=== PATIENT | female | born 1960 | race Caucasian/White ===

== ENCOUNTER 2018-01-03 21:40 | Observation (INO) | payer OTHER ==
[2018-01-03 21:53] VITALS: BMI 26.5
--- NOTE | 2018-01-03 21:57 | ED PDOC ---
Arrival/HPI - General Historian: Patient, EMS - History of Present Illness Narrative History of Present Illness (Text): 01/03/18 21:41 57 y/o female, pmh including htn/dm, nkda, biba, post menopausal, c/o rt. lateral knee pain x 2 days. Pt. stated that she has chronic history of the rt. lateral knee pain for months, possibly injured it couple days ago from getting up from the seat, started to hurt again 2 days ago, took oxycodone 1 tablet this afternoon improved but the pain return, admits pain with walking, no fever or chills, pain radiating to the rt. calf, no night sweat, no rash, no other medical or psychological complaints. Past Medical History - Provider Review Nursing Documentation Reviewed: Yes Family/Social History - Physician Review Nursing Documentation Reviewed: Yes Family/Social History: Unknown Family HX Allergies/Home Meds Allergies/Adverse Reactions: Allergies No Known Allergies Allergy (Verified 01/03/18 21:57) Home Medications: Home Meds Medication Instructions Recorded Confirmed RX: Hydrochlorothiazide [Microzide] 25 mg PO DAILY 01/03/18 01/03/18 RX: Lisinopril [Zestril] 20 mg PO DAILY 01/03/18 01/03/18 RX: MetFORMIN [glucoPHAGE] 1 tab PO DAILY 01/03/18 01/03/18 RX: amLODIPine [Norvasc] 10 mg PO DAILY 01/03/18 01/03/18 RX: glyBURIDE [Micronase] 5 mg PO DAILY 01/03/18 01/03/18 Review of Systems - Review of Systems Constitutional: absent: Fatigue, Fevers Eyes: absent: Vision Changes ENT: absent: Hearing Changes Respiratory: absent: SOB, Cough Cardiovascular: absent: Chest Pain Gastrointestinal: absent: Abdominal Pain, Nausea, Vomiting Musculoskeletal: Arthralgias, Joint Swelling. absent: Back Pain, Neck Pain, Myalgias Skin: absent: Rash, Pruritis Neurological: absent: Headache, Dizziness Psychiatric: absent: Anxiety, Depression Physical Exam Vital Signs Reviewed: Yes Temperature: Afebrile Blood Pressure: Hypertensive Pulse: Regular Respiratory Rate: Normal Appearance: Positive for: Well-Appearing, Non-Toxic, Comfortable Pain Distress: Moderate Mental Status: Positive for: Alert and Oriented X 3 - Systems Exam Head: Present: Atraumatic, Normocephalic Pupils: Present: PERRL Extroacular Muscles: Present: EOMI Conjunctiva: Present: Normal Mouth: Present: Moist Mucous Membranes Neck: Present: Normal Range of Motion Respiratory/Chest: Present: Clear to Auscultation, Good Air Exchange. No: Respiratory Distress, Accessory Muscle Use Cardiovascular: Present: Regular Rate and Rhythm, Normal S1, S2. No: Murmurs Abdomen: No: Tenderness, Distention, Peritoneal Signs Back: Present: Normal Inspection Upper Extremity: Present: Normal Inspection. No: Cyanosis, Edema Lower Extremity: Present: Normal Inspection, Other (Rt. knee/LE: +ttp and significant swelling on the rt. knee with no erythematous, no cellulitis or ulcers, negative keyonna and gupta signs, FROM with pain upon active walking, sensation intact, motor 5/5, +DPPT pulses, capillary refill< 2 seconds, neurovascular intact. ). No: Edema Neurological: Present: GCS=15, CN II-XII Intact, Speech Normal Skin: Present: Warm, Dry, Normal Color. No: Rashes Psychiatric: Present: Alert, Oriented x 3, Normal Insight, Normal Concentration Medical Decision Making ED Course and Treatment: 01/03/18 22:01 -Labs -Rt. knee CT -RLE Venuous doppler -Toradol IM -Observe and reassess 01/04/18 00:08 -CT Rt. knee There are tricompartmental changes of degenerative joint disease. Findings are demonstrated by joint space narrowing, osteophyte formation and subchondral sclerosis. No fracture or dislocation is seen. No lytic or blastic lesion is appreciated. There is moderate suprapatellar knee joint effusion. There is no evidence radiopaque foreign body. -RLE Venuous doppler: as per preliminary report, no acute DVT -Labs show no acute findings except wbc 13.1 (likely pain induced), hyperurecemia 7.3 (colchicine 1.2mg po ordered) -Rt. knee arthrocentesis: sensation intact, motor 5/5, clean with betadine and alcohol prep, sterile procedure, 2cc of lidocaine 1% for local anesthetic, 18 gaugze with 60cc syringer enter on the lateral aspect of the knee with approx. 30-40cc of synovial fluid pinkish color obtained under sonogram guidance, bacitracin and gauze dressing, akira wraps with neurovascular intact, sensation intact, motor 5/5, pt. significantly feels more range of movement of the rt. knee and feels better. cell count/culture/uric acid/gram stain ordered. -Pt. has pain, painful to walk, arthritis, will admit for intractable pain and orthopedic consult and physical therapy consult, I spoke to dr. alfred and agreed that this patient needs admission but request admit under hospitalist service. 01/04/18 01:27 -I spoke to the esthetician and manager medical [facility] on [facility] and Dr. Anthony, discussed about the case/radiology result and they would follow up on the pending/labs/radiology studies and follow up consults. 01/04/18 01:27 -Synovial fluid: wbc less shonda 50,000, unlikely septic joint, clinically likely gouty arthritis or other inflammatory joint, due to pain and unable to walk/stand independently, will admit for observation - RAD Interpretation Radiology Orders: -CT rt. knee CT scan of the right knee without contrast. Indication: Right superolateral knee swelling. Technique: Axial CT scan images without contrast. Reformatted coronal and sagittal images. Findings: Mild osteopenia of the bones. There are tricompartmental changes of degenerative joint disease. Findings are demonstrated by joint space narrowing, osteophyte formation and subchondral sclerosis. No fracture or dislocation is seen. No lytic or blastic lesion is appreciated. There is moderate suprapatellar knee joint effusion. There is no evidence radiopaque foreign body. Impression: Osteopenia. Degenerative joint disease. Electronically signed on Jan 04, 2018 12:14:55 AM EST by: Yue Neri M.D., Certified by LUIS, MSK, Neuroradiology -RLE Venuous doppler: as per preliminary report, no acute DVT Superintendent Meter Tests: Radiologist - PA / COMMUNICATIONS DEPARTMENT HEAD / Resident Statement / has reviewed & agrees with the documentation as recorded. Disposition/Present on Arrival - Present on Arrival Any Indicators Present on Arrival: No History of DVT/PE: No History of Uncontrolled Diabetes: No Urinary Catheter: No History of Decub. Ulcer: No - Disposition Have Diagnosis and Disposition been Completed?: Yes Diagnosis: Knee effusion, right, Acute arthritis, Hyperuricemia Disposition: HOSPITALIZED Disposition Time: 00:56 Patient Plan: Admission, Observation Patient Problems: Current Active Problems Problem Status Onset Acute arthritis Acute Hyperuricemia Acute Knee effusion, right Acute Condition: STABLE
[2018-01-03 23:12] LABS: BASO # 0.02 K/mm3 (0.0-2.0); BASO % 0.2 % (0.0-3.0); EOS # 0.1 (0.0-0.7); EOS % 0.8 % (1.5-5.0); GRAN # 10.13 (1.4-6.5); GRAN % 77.2 % (50.0-68.0); HEMOGLOBIN 11.4 g/dL (12.0-16.0); LYMPH # 2.2 (1.2-3.4); LYMPH % 17.1 % (22.0-35.0); MEAN CELL VOLUME 74.4 fl (80.0-105.0); MEAN CORPUSCULAR HEMOGLOBIN 23.9 pg (25.0-35.0); MEAN CORPUSCULAR HGB CONC 32.2 g/dl (31.0-37.0); MEAN PLATELET VOLUME 10.6 fl (7.0-11.0); MONO # 0.6 (0.1-0.6); MONO % 4.7 % (1.0-6.0); RBC 4.76 10^6/uL (3.5-6.1); RED CELL DISTRIBUTION WIDTH 16.1 % (11.5-14.5); WHITE BLOOD COUNT 13.1 10^3/uL (4.5-11.0)
[2018-01-03 23:21] LABS: ALB/GLOB RATIO 1.1 (1.1-1.8); ALBUMIN 4.2 g/dL (3.0-4.8); ALT/SGPT 25 U/L (7-56); AST/SGOT 25 U/L (14-36); BLOOD UREA NITROGEN 16 mg/dL (7-21); CALCIUM 9.6 mg/dL (8.4-10.5); GFR NON-AFRICAN AMERICAN > 60; URIC ACID 7.3 mg/dL (2.5-6.2)
[2018-01-04] MEDS ORDERED: Oxycodone/Acetaminophen 5/325 mg Tab PO STA (00:09)
[2018-01-04 01:21] LABS: FLUID TYPE SYNOVIAL FLUID
[2018-01-04 01:56] LABS: SF GROSS APPEARANCE BLOODY (CLEAR)
--- NOTE | 2018-01-04 02:08 | CP.PCM.HP ---
<Thien Dean - Last Filed: 01/04/18 06:02> History of Present Illness - History of Present Illness History of Present Illness: Thien Dean, PGY-1 Medicine H&P Note for Dr. Anthony: CC: R knee pain Pt is a 57 yo F with pmhx of HTN and NIDDM who presented to the ED for R knee pain x 2 days. Pt states that her pain started about 2 days ago when she was getting up from the couch and felt a twinge in her knee. Pt then tried to rest the knee and took OTC advil with no relief. Pt then stated that today the pain became unbearable and was a 10/10 in intensity with the pain radiating throug hout her whole leg. Pt reports that she was uinable to walk, or put any pressure on the leg. She denies any recent trauma or fall sustained to the area and states that the only thing that she can account for the pain is when she felt a twinge of pain rising up from the couch 2 days ago. She states that about 1&1/2 months ago when she was returning from [place], she was sitting in a small seat and felt pressure upon her knees for the duration of the flight, and when she would get up to walk afterwards her R knee would begin to cause pain. She is currently denying fevers, chills, headache, weakness, SOB, cough, chest pain, palpitations, leg swelling, abd pain, n/v, c/d, dysuria, hematuria, numbness, tingling or weakness in any extremity. Pt only admits to R knee pain worse with movement, but still present even at rest. Pmhx: HTN and NIDDM Pshx: x4, hernia x1 Meds: amlodipine 10mg qd, metformin 1000 BID, lisinopril 20qd, HCTZ 25 qd, Glyburide 10BID All: NKDA Social: Denies any hx of tobacco use, denies etoh or illicit drug use Fam: Mom: DM, HTN PMD: Dr. Easton Pharm: Dennis Whitaker Present on Admission - Present on Admission Any Indicators Present on Admission: No Review of Systems - Review of Systems Review of Systems: 12 point ROS reviewed and negative except for noted in HPI above. Past Patient History - Past Social History Smoking Status: Never Smoked - CARDIAC Hx Hypertension: Yes - PULMONARY Hx Respiratory Disorders: No - ENDOCRINE/METABOLIC Hx Diabetes Mellitus Type 2: Yes - GASTROINTESTINAL Other/Comment: hernia - PSYCHIATRIC Hx Substance Use: No - SURGICAL HISTORY Hx Section: Yes - ANESTHESIA Hx Anesthesia: Yes Hx Anesthesia Reactions: No Hx Malignant Hyperthermia: No Meds Allergies/Adverse Reactions: Allergies Allergy/AdvReac Type Severity Reaction Status Date / Time No Known Allergies Allergy Verified 01/03/18 21:57 Physical Exam - Constitutional Appears: Well, Non-toxic, No Acute Distress - Head Exam Head Exam: ATRAUMATIC, NORMAL INSPECTION, NORMOCEPHALIC - Eye Exam Eye Exam: EOMI, Normal appearance, PERRL - Respiratory Exam Respiratory Exam: Clear to Auscultation Bilateral, NORMAL BREATHING PATTERN. absent: Accessory Muscle Use, Decreased Breath Sounds, Rales, Rhonchi, Wheezes, Respiratory Distress, Stridor - Cardiovascular Exam Cardiovascular Exam: Gallop, RRR, +S1, +S2. absent: Rubs - GI/Abdominal Exam GI & Abdominal Exam: Normal Bowel Sounds, Soft. absent: Guarding, Tenderness - Extremities Exam Extremities exam: Positive for: joint swelling (Present on R knee compared to L), normal capillary refill, normal inspection, pedal pulses present. Negative for: calf tenderness, pedal edema Additional comments: (-) homans sign - Back Exam Back exam: NORMAL INSPECTION. absent: CVA tenderness (L), CVA tenderness (R) - Neurological Exam Neurological exam: Alert, Oriented x3 - Psychiatric Exam Psychiatric exam: Normal Affect, Normal Mood - Skin Skin Exam: Dry, Intact, Normal Color, Warm Results - Vital Signs Recent Vital Signs: Last Vital Signs Temp 99.5 F 01/03/18 21:40 Pulse 90 01/03/18 21:40 Resp 18 01/03/18 21:40 BP 183/86 H 01/03/18 21:40 Pulse Ox 99 01/03/18 21:40 - Labs Result Diagrams: 01/03/18 23:06 01/03/18 23:06 Labs: Laboratory Results - last 24 hr 01/03/18 01/03/18 01/04/18 23:06 23:06 00:50 WBC 13.1 H RBC 4.76 Hgb 11.4 L Hct 35.4 L MCV 74.4 L MCH 23.9 L MCHC 32.2 RDW 16.1 H Plt Count 342 MPV 10.6 Gran % 77.2 H Lymph % (Auto) 17.1 L [place] % (Auto) 4.7 Eos % (Auto) 0.8 L Baso % (Auto) 0.2 Gran # 10.13 H Lymph # (Auto) 2.2 [place] # (Auto) 0.6 Eos # (Auto) 0.1 Baso # (Auto) 0.02 Sodium 137 Potassium 3.9 Chloride 102 Carbon Dioxide 26 Anion Gap 13 BUN 16 Creatinine 0.9 Est GFR ( Amer) > 60 Est GFR (Non-Af Amer) > 60 Random Glucose 165 H Uric Acid 7.3 H Calcium 9.6 Total Bilirubin 0.3 AST 25 ALT 25 Alkaline Phosphatase 110 Total Creatine Kinase 75 Total Protein 7.8 Albumin 4.2 Globulin 3.7 Albumin/Globulin Ratio 1.1 Fluid Type Synovial fluid Synovial WBC Synovial RBC Synovial Mononuclear Synov Polymorphonuclear Synovial Fluid Comment 01/04/18 01/04/18 00:58 00:58 WBC RBC Hgb Hct MCV MCH MCHC RDW Plt Count MPV Gran % Lymph % (Auto) [place] % (Auto) Eos % (Auto) Baso % (Auto) Gran # Lymph # (Auto) [place] # (Auto) Eos # (Auto) Baso # (Auto) Sodium Potassium Chloride Carbon Dioxide Anion Gap BUN Creatinine Est GFR ( Amer) Est GFR (Non-Af Amer) Random Glucose Uric Acid Calcium Total Bilirubin AST ALT Alkaline Phosphatase Total Creatine Kinase Total Protein Albumin Globulin Albumin/Globulin Ratio Fluid Type Cancelled Synovial WBC Cancelled 88953.0 H Synovial RBC Cancelled 35465.0 H Synovial Mononuclear Cancelled 4.4 H Synov Polymorphonuclear Cancelled 95.6 H Synovial Fluid Comment Cancelled TEST NOT PERFORMED Assessment & Plan - Assessment and Plan (Free Text) Assessment: Pt is a 57 yo F with pmhx of HTN and NIDDM who presented to the ED for R knee pain x [address] R knee noted moderate effusion, Initial US is negative for DVT. Effusion drained and sent for analysis in ED. Plan: 1. R Knee joint effusion 2/2 Septic arthritis vs inflammatory arthritis - CT R knee showed moderate effusion, effusion drained and sent for analysis in ED - Duplex u/s LE - initial read (-) for DVT - Lab analysis shows synovial WBC: 21,780 and PMN%: 95.6%, RBCs: 67566 - f/u Synovial culture - f/u CRP - f/u ESR - f/u uric acid synovial fluid - Started on Vanc and zosyn - Indomethacin 50 TID 2. Microcytic Anemia: - F/u Fe, ferritin, TIBC, B12, Folate, retic count 3. Hx of HTN: - Cont home norvasc, HCTZ, lisinopril 4. Hx of NIDDM: - F/u HbgA1c - ISS PPX: GI: Protonix 40 DVT: SCDs <Henrique Anthony - Last Filed: 01/04/18 19:15> Results - Vital Signs Recent Vital Signs: Last Vital Signs Temp 97.6 F 01/04/18 17:02 Pulse 74 01/04/18 17:02 Resp 20 01/04/18 17:02 BP 169/99 H 01/04/18 17:02 Pulse Ox 97 01/04/18 17:02 - Labs Result Diagrams: 01/04/18 03:40 01/04/18 03:40 Labs: Laboratory Results - last 24 hr 01/03/18 01/03/18 01/03/18 23:06 23:06 23:06 WBC 13.1 H RBC 4.76 Hgb 11.4 L Hct 35.4 L MCV 74.4 L MCH 23.9 L MCHC 32.2 RDW 16.1 H Plt Count 342 MPV 10.6 Gran % 77.2 H Lymph % (Auto) 17.1 L [place] % (Auto) 4.7 Eos % (Auto) 0.8 L Baso % (Auto) 0.2 Gran # 10.13 H Lymph # (Auto) 2.2 [place] # (Auto) 0.6 Eos # (Auto) 0.1 Baso # (Auto) 0.02 ESR Retic Count 0.92 PT INR APTT Sodium 137 Potassium 3.9 Chloride 102 Carbon Dioxide 26 Anion Gap 13 BUN 16 Creatinine 0.9 Est GFR ( Amer) > 60 Est GFR (Non-Af Amer) > 60 POC Glucose (mg/dL) Random Glucose 165 H Hemoglobin A1c Uric Acid 7.3 H Calcium 9.6 Iron TIBC % Saturation Ferritin Total Bilirubin 0.3 AST 25 ALT 25 Alkaline Phosphatase 110 Total Creatine Kinase 75 C-React Prot High Sens Total Protein 7.8 Albumin 4.2 Globulin 3.7 Albumin/Globulin Ratio 1.1 Vitamin B12 Fluid Type Synovial WBC Synovial RBC Synovial Mononuclear Synov Polymorphonuclear Synovial Fluid Comment 01/03/18 01/03/18 01/04/18 23:06 23:06 00:50 WBC RBC Hgb Hct MCV MCH MCHC RDW Plt Count MPV Gran % Lymph % (Auto) [place] % (Auto) Eos % (Auto) Baso % (Auto) Gran # Lymph # (Auto) [place] # (Auto) Eos # (Auto) Baso # (Auto) ESR Retic Count PT INR APTT Sodium Potassium Chloride Carbon Dioxide Anion Gap BUN Creatinine Est GFR ( Amer) Est GFR (Non-Af Amer) POC Glucose (mg/dL) Random Glucose Hemoglobin A1c Uric Acid Calcium Iron 24 L TIBC 355 % Saturation 7 L Ferritin 10.8 Total Bilirubin AST ALT Alkaline Phosphatase Total Creatine Kinase C-React Prot High Sens Total Protein Albumin Globulin Albumin/Globulin Ratio Vitamin B12 416 Fluid Type Synovial fluid Synovial WBC Synovial RBC Synovial Mononuclear Synov Polymorphonuclear Synovial Fluid Comment 01/04/18 01/04/18 01/04/18 00:58 00:58 03:40 WBC 13.9 H RBC 4.50 Hgb 10.9 L Hct 33.2 L MCV 73.8 L MCH 24.2 L MCHC 32.8 RDW 16.1 H Plt Count 340 MPV 10.6 Gran % 72.1 H Lymph % (Auto) 21.9 L [place] % (Auto) 5.3 Eos % (Auto) 0.6 L Baso % (Auto) 0.1 Gran # 10.00 H Lymph # (Auto) 3.0 [place] # (Auto) 0.7 H Eos # (Auto) 0.1 Baso # (Auto) 0.02 ESR 55 H Retic Count PT INR APTT Sodium Potassium Chloride Carbon Dioxide Anion Gap BUN Creatinine Est GFR ( Amer) Est GFR (Non-Af Amer) POC Glucose (mg/dL) Random Glucose Hemoglobin A1c Uric Acid Calcium Iron TIBC % Saturation Ferritin Total Bilirubin AST ALT Alkaline Phosphatase Total Creatine Kinase C-React Prot High Sens Total Protein Albumin Globulin Albumin/Globulin Ratio Vitamin B12 Fluid Type Cancelled Synovial WBC Cancelled 02594.0 H Synovial RBC Cancelled 49183.0 H Synovial Mononuclear Cancelled 4.4 H Synov Polymorphonuclear Cancelled 95.6 H Synovial Fluid Comment Cancelled TEST NOT PERFORMED 01/04/18 01/04/1818 03:40 03:40 03:40 WBC RBC Hgb Hct MCV MCH MCHC RDW Plt Count MPV Gran % Lymph % (Auto) [place] % (Auto) Eos % (Auto) Baso % (Auto) Gran # Lymph # (Auto) [place] # (Auto) Eos # (Auto) Baso # (Auto) ESR Retic Count PT 13.0 H INR 1.14 APTT 33.8 Sodium 141 Potassium 3.7 Chloride 105 Carbon Dioxide 26 Anion Gap 14 BUN 17 Creatinine 0.9 Est GFR ( Amer) > 60 Est GFR (Non-Af Amer) > 60 POC Glucose (mg/dL) Random Glucose 107 Hemoglobin A1c Uric Acid Calcium 9.6 Iron TIBC % Saturation Ferritin Total Bilirubin 0.3 AST 24 ALT 28 Alkaline Phosphatase 100 Total Creatine Kinase C-React Prot High Sens > 15.00 H Total Protein 7.5 Albumin 4.0 Globulin 3.5 Albumin/Globulin Ratio 1.1 Vitamin B12 Fluid Type Synovial WBC Synovial RBC Synovial Mononuclear Synov Polymorphonuclear Synovial Fluid Comment 01/04/18 01/04/18 01/04/18 03:40 07:46 11:22 WBC RBC Hgb Hct MCV MCH MCHC RDW Plt Count MPV Gran % Lymph % (Auto) [place] % (Auto) Eos % (Auto) Baso % (Auto) Gran # Lymph # (Auto) [place] # (Auto) Eos # (Auto) Baso # (Auto) ESR Retic Count PT INR APTT Sodium Potassium Chloride Carbon Dioxide Anion Gap BUN Creatinine Est GFR ( Amer) Est GFR (Non-Af Amer) POC Glucose (mg/dL) 104 184 H Random Glucose Hemoglobin A1c 8.4 H Uric Acid Calcium Iron TIBC % Saturation Ferritin Total Bilirubin AST ALT Alkaline Phosphatase Total Creatine Kinase C-React Prot High Sens Total Protein Albumin Globulin Albumin/Globulin Ratio Vitamin B12 Fluid Type Synovial WBC Synovial RBC Synovial Mononuclear Synov Polymorphonuclear Synovial Fluid Comment Attending/Attestation - Attestation I have personally seen and examined this patient.: Yes I have fully participated in the care of the patient.: Yes I have reviewed all pertinent clinical information: Yes
[2018-01-04 03:31] LABS: IRON 24 ug/dL (45-180)
[2018-01-04 03:40] LABS: % IRON SATURATION 7 % (20-55); TOTAL IRON BINDING CAPACITY 355 ug/dL (265-497)
[2018-01-04] MEDS ORDERED: Dextrose 50% SYRINGE Inj (50 ml) IV PRN (03:58)
[2018-01-04 04:19] LABS: ALB/GLOB RATIO 1.1 (1.1-1.8); ALT/SGPT 28 U/L (7-56); AST/SGOT 24 U/L (14-36); BLOOD UREA NITROGEN 17 mg/dL (7-21); CALCIUM 9.6 mg/dL (8.4-10.5); GFR NON-AFRICAN AMERICAN > 60
[2018-01-04 04:20] LABS: BASO # 0.02 K/mm3 (0.0-2.0); BASO % 0.1 % (0.0-3.0); EOS # 0.1 (0.0-0.7); EOS % 0.6 % (1.5-5.0); GRAN % 72.1 % (50.0-68.0); HEMOGLOBIN 10.9 g/dL (12.0-16.0); LYMPH % 21.9 % (22.0-35.0); MEAN CELL VOLUME 73.8 fl (80.0-105.0); MEAN CORPUSCULAR HEMOGLOBIN 24.2 pg (25.0-35.0); MEAN CORPUSCULAR HGB CONC 32.8 g/dl (31.0-37.0); MEAN PLATELET VOLUME 10.6 fl (7.0-11.0); MONO # 0.7 (0.1-0.6); MONO % 5.3 % (1.0-6.0); RBC 4.5 10^6/uL (3.5-6.1); RED CELL DISTRIBUTION WIDTH 16.1 % (11.5-14.5); WHITE BLOOD COUNT 13.9 10^3/uL (4.5-11.0)
[2018-01-04 04:23] LABS: INR 1.14; PARTIAL THROMBOPLASTIN TIME 33.8 Seconds (25.1-36.5)
[2018-01-04] MEDS: Pantoprazole 40 mg EC Tab PO SCH (06:07)
[2018-01-04] MEDS: Piperacillin/Tazobact 3.375 gm 100 ML IVPB SCH ×2 (06:08→13:43)
--- NOTE | 2018-01-04 09:09 | CT ---
Date of service: 01/03/2018 PROCEDURE: HISTORY: Rt. superior/lateral knee swelling, pain COMPARISON: TECHNIQUE: FINDINGS: No acute fracture dislocation. 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 Large joint effusion. Soft tissues are grossly unremarkable. IMPRESSION: Degenerative changes. Large joint effusion.
[2018-01-04] MEDS: Insulin Lispro (humaLOG) LOW Coverage SC SCH ×4 (09:30→22:32)
[2018-01-04] MEDS ORDERED: Vancomycin 1gm in NS 250ml 1 GM/250 ML BAG IVPB SCH (10:00)
[2018-01-04 13:39] LABS: FERRITIN 10.8 ng/mL
--- NOTE | 2018-01-04 15:36 | CP.PCM.CON ---
<Gaston Farmer - Last Filed: 01/04/18 15:23> History of Present Illness - History of Present Illness History of Present Illness: ID Consult Note - Dr. Guerin CC: Rt Knee Pain HPI: 57 F with a PMHx of HTN and NIDDM that presented to the ED for right sided knee pain x 2 days. Pt states that her pain started about 2 days ago when she was on the sofa and was positioning herself to stand however felt a sharp pain deep in her knee that remained constant. Pt tried NSAIDs without relief and could not weight bear on the right side. At it's worst, the pain was rated at 10/10 in intensity radiating into her lower leg. She denies any recent trauma, however noted that she had a fall outside after tripping into a pothole. However, that was more than a month ago. She is currently denying fevers, chi lls, headache, weakness, SOB, cough, chest pain, palpitations, cheat pains, abdominal pains, diarrhea, constipation, urinary symptoms or parasthesias. PMHx: HTN and NIDDM PSHx: x4, hernia x1 SHx: Denies any hx of tobacco use, denies etoh or illicit drug use Fam: Mom: DM, HTN Meds: amlodipine 10mg qd, metformin 1000 BID, lisinopril 20qd, HCTZ 25 qd, Glyburide 10BID Allergies: NKDA Review of Systems - Review of Systems Review of Systems: As per HPI otherwise negative Past Patient History - Past Social History Smoking Status: Never Smoked - CARDIAC Hx Hypertension: Yes - PULMONARY Hx Respiratory Disorders: No - ENDOCRINE/METABOLIC Hx Diabetes Mellitus Type 2: Yes - MUSCULOSKELETAL/RHEUMATOLOGICAL Hx Falls: No Hx Gout: Yes - GASTROINTESTINAL Other/Comment: hernia - PSYCHIATRIC Hx Substance Use: No - SURGICAL HISTORY Hx Section: Yes - ANESTHESIA Hx Anesthesia: Yes Hx Anesthesia Reactions: No Hx Malignant Hyperthermia: No Meds Allergies/Adverse Reactions: Allergies Allergy/AdvReac Type Severity Reaction Status Date / Time No Known Allergies Allergy Verified 01/03/18 21:57 - Medications Medications: Current Medications Amlodipine Besylate (Norvasc) 10 mg PO DAILY [facility] Last Admin: 01/04/18 09:27 Dose: 10 mg Dextrose (Dextrose 50% Inj) 0 ml IV STAT PRN; Protocol PRN Reason: Hypoglycemia Protocol Vancomycin HCl (Vancomycin 1gm) 1 gm in 250 mls @ 167 mls/hr IVPB DAILY [facility]; Protocol Last Admin: 01/04/18 09:29 Dose: 167 mls/hr Piperacillin Sod/Tazobactam Sod (Zosyn 3.375 In Ns 100ml) 100 mls @ 25 mls/hr IVPB Q8 [facility]; Protocol Stop: 01/04/18 17:59 Last Admin: 01/04/18 13:43 Dose: 25 mls/hr Dextrose (Dextrose 5% In Water 1000 Ml) 1,000 mls @ 0 mls/hr IV .Q0M PRN; Protocol PRN Reason: Hypoglycemia Protocol Indomethacin (Indocin) 50 mg PO TID [facility] Last Admin: 01/04/18 13:47 Dose: 50 mg Insulin Human Lispro (Humalog Low) 0 units SC ACHS [facility]; Protocol Last Admin: 01/04/18 11:49 Dose: 1 unit Lisinopril (Zestril) 20 mg PO DAILY [facility] Last Admin: 01/04/18 09:28 Dose: 20 mg Ondansetron HCl (Zofran Inj) 4 mg IVP Q6H PRN PRN Reason: Nausea/Vomiting Last Admin: 01/04/18 11:30 Dose: 4 mg Pantoprazole Sodium (Protonix Ec Tab) 40 mg PO 0600 [facility] Last Admin: 01/04/18 06:07 Dose: 40 mg Physical Exam - Constitutional Appears: No Acute Distress Additional comments: obese - Head Exam Head Exam: ATRAUMATIC, NORMAL INSPECTION, NORMOCEPHALIC - Eye Exam Eye Exam: EOMI, Normal appearance, PERRL Pupil Exam: NORMAL ACCOMODATION, PERRL - ENT Exam ENT Exam: Mucous Membranes Moist, Normal Exam - Neck Exam Neck exam: Positive for: Normal Inspection - Respiratory Exam Respiratory Exam: Clear to Auscultation Bilateral, NORMAL BREATHING PATTERN - Cardiovascular Exam Cardiovascular Exam: REGULAR RHYTHM, +S1, +S2 - GI/Abdominal Exam GI & Abdominal Exam: Normal Bowel Sounds, Soft. absent: Tenderness - Extremities Exam Extremities exam: Positive for: joint swelling, tenderness - Neurological Exam Neurological exam: Alert, CN II-XII Intact, Oriented x3, Reflexes Normal - Psychiatric Exam Psychiatric exam: Normal Affect, Normal Mood - Skin Skin Exam: Dry, Intact, Normal Color, Warm Results - Vital Signs Recent Vital Signs: Last Vital Signs Temp 98.3 F 01/04/18 06:00 Pulse 79 01/04/18 09:28 Resp 20 01/04/18 06:00 BP 158/82 H 01/04/18 09:28 Pulse Ox 98 01/04/18 06:00 - Labs Result Diagrams: 01/04/18 03:40 01/04/18 03:40 Labs: Laboratory Results - last 24 hr 01/03/18 01/03/18 01/03/18 23:06 23:06 23:06 WBC 13.1 H RBC 4.76 Hgb 11.4 L Hct 35.4 L MCV 74.4 L MCH 23.9 L MCHC 32.2 RDW 16.1 H Plt Count 342 MPV 10.6 Gran % 77.2 H Lymph % (Auto) 17.1 L [place] % (Auto) 4.7 Eos % (Auto) 0.8 L Baso % (Auto) 0.2 Gran # 10.13 H Lymph # (Auto) 2.2 [place] # (Auto) 0.6 Eos # (Auto) 0.1 Baso # (Auto) 0.02 ESR Retic Count 0.92 PT INR APTT Sodium 137 Potassium 3.9 Chloride 102 Carbon Dioxide 26 Anion Gap 13 BUN 16 Creatinine 0.9 Est GFR ( Amer) > 60 Est GFR (Non-Af Amer) > 60 POC Glucose (mg/dL) Random Glucose 165 H Hemoglobin A1c Uric Acid 7.3 H Calcium 9.6 Iron TIBC % Saturation Ferritin Total Bilirubin 0.3 AST 25 ALT 25 Alkaline Phosphatase 110 Total Creatine Kinase 75 C-React Prot High Sens Total Protein 7.8 Albumin 4.2 Globulin 3.7 Albumin/Globulin Ratio 1.1 Vitamin B12 Fluid Type Synovial WBC Synovial RBC Synovial Mononuclear Synov Polymorphonuclear Synovial Fluid Comment 01/03/18 01/03/18 01/04/18 23:06 23:06 00:50 WBC RBC Hgb Hct MCV MCH MCHC RDW Plt Count MPV Gran % Lymph % (Auto) [place] % (Auto) Eos % (Auto) Baso % (Auto) Gran # Lymph # (Auto) [place] # (Auto) Eos # (Auto) Baso # (Auto) ESR Retic Count PT INR APTT Sodium Potassium Chloride Carbon Dioxide Anion Gap BUN Creatinine Est GFR ( Amer) Est GFR (Non-Af Amer) POC Glucose (mg/dL) Random Glucose Hemoglobin A1c Uric Acid Calcium Iron 24 L TIBC 355 % Saturation 7 L Ferritin 10.8 Total Bilirubin AST ALT Alkaline Phosphatase Total Creatine Kinase C-React Prot High Sens Total Protein Albumin Globulin Albumin/Globulin Ratio Vitamin B12 416 Fluid Type Synovial fluid Synovial WBC Synovial RBC Synovial Mononuclear Synov Polymorphonuclear Synovial Fluid Comment 01/04/18 01/04/18 01/04/18 00:58 00:58 03:40 WBC 13.9 H RBC 4.50 Hgb 10.9 L Hct 33.2 L MCV 73.8 L MCH 24.2 L MCHC 32.8 RDW 16.1 H Plt Count 340 MPV 10.6 Gran % 72.1 H Lymph % (Auto) 21.9 L [place] % (Auto) 5.3 Eos % (Auto) 0.6 L Baso % (Auto) 0.1 Gran # 10.00 H Lymph # (Auto) 3.0 [place] # (Auto) 0.7 H Eos # (Auto) 0.1 Baso # (Auto) 0.02 ESR 55 H Retic Count PT INR APTT Sodium Potassium Chloride Carbon Dioxide Anion Gap BUN Creatinine Est GFR ( Amer) Est GFR (Non-Af Amer) POC Glucose (mg/dL) Random Glucose Hemoglobin A1c Uric Acid Calcium Iron TIBC % Saturation Ferritin Total Bilirubin AST ALT Alkaline Phosphatase Total Creatine Kinase C-React Prot High Sens Total Protein Albumin Globulin Albumin/Globulin Ratio Vitamin B12 Fluid Type Cancelled Synovial WBC Cancelled 04173.0 H Synovial RBC Cancelled 11208.0 H Synovial Mononuclear Cancelled 4.4 H Synov Polymorphonuclear Cancelled 95.6 H Synovial Fluid Comment Cancelled TEST NOT PERFORMED 01/04/18 01/04/18 01/04/18 03:40 03:40 03:40 WBC RBC Hgb Hct MCV MCH MCHC RDW Plt Count MPV Gran % Lymph % (Auto) [place] % (Auto) Eos % (Auto) Baso % (Auto) Gran # Lymph # (Auto) [place] # (Auto) Eos # (Auto) Baso # (Auto) ESR Retic Count PT 13.0 H INR 1.14 APTT 33.8 Sodium 141 Potassium 3.7 Chloride 105 Carbon Dioxide 26 Anion Gap 14 BUN 17 Creatinine 0.9 Est GFR ( Amer) > 60 Est GFR (Non-Af Amer) > 60 POC Glucose (mg/dL) Random Glucose 107 Hemoglobin A1c Uric Acid Calcium 9.6 Iron TIBC % Saturation Ferritin Total Bilirubin 0.3 AST 24 ALT 28 Alkaline Phosphatase 100 Total Creatine Kinase C-React Prot High Sens > 15.00 H Total Protein 7.5 Albumin 4.0 Globulin 3.5 Albumin/Globulin Ratio 1.1 Vitamin B12 Fluid Type Synovial WBC Synovial RBC Synovial Mononuclear Synov Polymorphonuclear Synovial Fluid Comment 01/04/18 01/04/18 01/04/18 03:40 07:46 11:22 WBC RBC Hgb Hct MCV MCH MCHC RDW Plt Count MPV Gran % Lymph % (Auto) [place] % (Auto) Eos % (Auto) Baso % (Auto) Gran # Lymph # (Auto) [place] # (Auto) Eos # (Auto) Baso # (Auto) ESR Retic Count PT INR APTT Sodium Potassium Chloride Carbon Dioxide Anion Gap BUN Creatinine Est GFR ( Amer) Est GFR (Non-Af Amer) POC Glucose (mg/dL) 104 184 H Random Glucose Hemoglobin A1c 8.4 H Uric Acid Calcium Iron TIBC % Saturation Ferritin Total Bilirubin AST ALT Alkaline Phosphatase Total Creatine Kinase C-React Prot High Sens Total Protein Albumin Globulin Albumin/Globulin Ratio Vitamin B12 Fluid Type Synovial WBC Synovial RBC Synovial Mononuclear Synov Polymorphonuclear Synovial Fluid Comment Assessment & Plan - Assessment and Plan (Free Text) Assessment: 57 F with PMHx of HTN and NIDDM who presented to the ED for R knee pain x [address] R knee noted moderate effusion, Initial US is negative for DVT. Effusion drained and sent for analysis in ED, found to have patellofemoral syndrome on imaging and elevated uric acid. Infectious source unlikely, will contnue vanc zosyn for now until cx return. Can stop abx after cx result. Consider other ant-htn than HCTZ in the setting of acute gout attack. Gout attack vs infectious knee microcytic anemia morbid obesity HTN NIDDM Plan - CT R knee showed moderate effusion, effusion drained and sent for analysis in ED - elevated uric acid - Lab analysis shows synovial WBC: 21,780 and PMN%: 95.6%, RBCs: 26138 - f/u Synovial culture - f/u CRP - f/u ESR - f/u uric acid synovial fluid - Started on Vanc and zosyn - Indomethacin 50 TID - colchicine given see reviewed and discussed with Dr. Guerin <Jovanni Guerin - Last Filed: 01/04/18 18:36> Meds - Medications Medications: Current Medications Amlodipine Besylate (Norvasc) 10 mg PO DAILY [facility] Last Admin: 01/04/18 09:27 Dose: 10 mg Dextrose (Dextrose 50% Inj) 0 ml IV STAT PRN; Protocol PRN Reason: Hypoglycemia Protocol Dextrose (Dextrose 5% In Water 1000 Ml) 1,000 mls @ 0 mls/hr IV .Q0M PRN; Protocol PRN Reason: Hypoglycemia Protocol Ceftriaxone Sodium (Rocephin 1 Gram Ivpb) 1 gm in 100 mls @ 100 mls/hr IVPB DA [facility]; Protocol Vancomycin HCl (Vancomycin 1gm) 1 gm in 250 mls @ 167 mls/hr IVPB Q12 [facility]; Protocol Indomethacin (Indocin) 50 mg PO TID [facility] Last Admin: 01/04/18 17:56 Dose: 50 mg Insulin Human Lispro (Humalog Low) 0 units SC ACHS [facility]; Protocol Last Admin: 01/04/18 17:57 Dose: 1 unit Lisinopril (Zestril) 20 mg PO DAILY [facility] Last Admin: 01/04/18 09:28 Dose: 20 mg Ondansetron HCl (Zofran Inj) 4 mg IVP Q6H PRN PRN Reason: Nausea/Vomiting Last Admin: 01/04/18 11:30 Dose: 4 mg Pantoprazole Sodium (Protonix Ec Tab) 40 mg PO 0600 [facility] Last Admin: 01/04/18 06:07 Dose: 40 mg Results - Vital Signs Recent Vital Signs: Last Vital Signs Temp 97.6 F 01/04/18 17:02 Pulse 74 01/04/18 17:02 Resp 20 01/04/18 17:02 BP 169/99 H 01/04/18 17:02 Pulse Ox 97 01/04/18 17:02 - Labs Result Diagrams: 01/04/18 03:40 01/04/18 03:40 Labs: Laboratory Results - last 24 hr 01/03/18 01/03/18 01/03/18 23:06 23:06 23:06 WBC 13.1 H RBC 4.76 Hgb 11.4 L Hct 35.4 L MCV 74.4 L MCH 23.9 L MCHC 32.2 RDW 16.1 H Plt Count 342 MPV 10.6 Gran % 77.2 H Lymph % (Auto) 17.1 L [place] % (Auto) 4.7 Eos % (Auto) 0.8 L Baso % (Auto) 0.2 Gran # 10.13 H Lymph # (Auto) 2.2 [place] # (Auto) 0.6 Eos # (Auto) 0.1 Baso # (Auto) 0.02 ESR Retic Count 0.92 PT INR APTT Sodium 137 Potassium 3.9 Chloride 102 Carbon Dioxide 26 Anion Gap 13 BUN 16 Creatinine 0.9 Est GFR ( Amer) > 60 Est GFR (Non-Af Amer) > 60 POC Glucose (mg/dL) Random Glucose 165 H Hemoglobin A1c Uric Acid 7.3 H Calcium 9.6 Iron TIBC % Saturation Ferritin Total Bilirubin 0.3 AST 25 ALT 25 Alkaline Phosphatase 110 Total Creatine Kinase 75 C-React Prot High Sens Total Protein 7.8 Albumin 4.2 Globulin 3.7 Albumin/Globulin Ratio 1.1 Vitamin B12 Fluid Type Synovial WBC Synovial RBC Synovial Mononuclear Synov Polymorphonuclear Synovial Fluid Comment 01/03/18 01/03/18 01/04/18 23:06 23:06 00:50 WBC RBC Hgb Hct MCV MCH MCHC RDW Plt Count MPV Gran % Lymph % (Auto) [place] % (Auto) Eos % (Auto) Baso % (Auto) Gran # Lymph # (Auto) [place] # (Auto) Eos # (Auto) Baso # (Auto) ESR Retic Count PT INR APTT Sodium Potassium Chloride Carbon Dioxide Anion Gap BUN Creatinine Est GFR ( Amer) Est GFR (Non-Af Amer) POC Glucose (mg/dL) Random Glucose Hemoglobin A1c Uric Acid Calcium Iron 24 L TIBC 355 % Saturation 7 L Ferritin 10.8 Total Bilirubin AST ALT Alkaline Phosphatase Total Creatine Kinase C-React Prot High Sens Total Protein Albumin Globulin Albumin/Globulin Ratio Vitamin B12 416 Fluid Type Synovial fluid Synovial WBC Synovial RBC Synovial Mononuclear Synov Polymorphonuclear Synovial Fluid Comment 01/04/18 01/04/18 01/04/18 00:58 00:58 03:40 WBC 13.9 H RBC 4.50 Hgb 10.9 L Hct 33.2 L MCV 73.8 L MCH 24.2 L MCHC 32.8 RDW 16.1 H Plt Count 340 MPV 10.6 Gran % 72.1 H Lymph % (Auto) 21.9 L [place] % (Auto) 5.3 Eos % (Auto) 0.6 L Baso % (Auto) 0.1 Gran # 10.00 H Lymph # (Auto) 3.0 [place] # (Auto) 0.7 H Eos # (Auto) 0.1 Baso # (Auto) 0.02 ESR 55 H Retic Count PT INR APTT Sodium Potassium Chloride Carbon Dioxide Anion Gap BUN Creatinine Est GFR ( Amer) Est GFR (Non-Af Amer) POC Glucose (mg/dL) Random Glucose Hemoglobin A1c Uric Acid Calcium Iron TIBC % Saturation Ferritin Total Bilirubin AST ALT Alkaline Phosphatase Total Creatine Kinase C-React Prot High Sens Total Protein Albumin Globulin Albumin/Globulin Ratio Vitamin B12 Fluid Type Cancelled Synovial WBC Cancelled 88937.0 H Synovial RBC Cancelled 72898.0 H Synovial Mononuclear Cancelled 4.4 H Synov Polymorphonuclear Cancelled 95.6 H Synovial Fluid Comment Cancelled TEST NOT PERFORMED 01/04/18 01/04/18 01/04/18 03:40 03:40 03:40 WBC RBC Hgb Hct MCV MCH MCHC RDW Plt Count MPV Gran % Lymph % (Auto) [place] % (Auto) Eos % (Auto) Baso % (Auto) Gran # Lymph # (Auto) [place] # (Auto) Eos # (Auto) Baso # (Auto) ESR Retic Count PT 13.0 H INR 1.14 APTT 33.8 Sodium 141 Potassium 3.7 Chloride 105 Carbon Dioxide 26 Anion Gap 14 BUN 17 Creatinine 0.9 Est GFR ( Amer) > 60 Est GFR (Non-Af Amer) > 60 POC Glucose (mg/dL) Random Glucose 107 Hemoglobin A1c Uric Acid Calcium 9.6 Iron TIBC % Saturation Ferritin Total Bilirubin 0.3 AST 24 ALT 28 Alkaline Phosphatase 100 Total Creatine Kinase C-React Prot High Sens > 15.00 H Total Protein 7.5 Albumin 4.0 Globulin 3.5 Albumin/Globulin Ratio 1.1 Vitamin B12 Fluid Type Synovial WBC Synovial RBC Synovial Mononuclear Synov Polymorphonuclear Synovial Fluid Comment 01/04/18 01/04/18 01/04/18 03:40 07:46 11:22 WBC RBC Hgb Hct MCV MCH MCHC RDW Plt Count MPV Gran % Lymph % (Auto) [place] % (Auto) Eos % (Auto) Baso % (Auto) Gran # Lymph # (Auto) [place] # (Auto) Eos # (Auto) Baso # (Auto) ESR Retic Count PT INR APTT Sodium Potassium Chloride Carbon Dioxide Anion Gap BUN Creatinine Est GFR ( Amer) Est GFR (Non-Af Amer) POC Glucose (mg/dL) 104 184 H Random Glucose Hemoglobin A1c 8.4 H Uric Acid Calcium Iron TIBC % Saturation Ferritin Total Bilirubin AST ALT Alkaline Phosphatase Total Creatine Kinase C-React Prot High Sens Total Protein Albumin Globulin Albumin/Globulin Ratio Vitamin B12 Fluid Type Synovial WBC Synovial RBC Synovial Mononuclear Synov Polymorphonuclear Synovial Fluid Comment Assessment & Plan - Assessment and Plan (Free Text) Assessment: Infectious diseases Attending Physician Attestation Patient seen and examined, discussed with medical driver. I have reviewed the patient's history of present illness, past medical, social, personal and family histories, pertinent physical exam findings, course so far in this hospital admission, pertinent laboratory and imaging results. I agree with the above findings, assessment and plan. In addition, will continue Vancomycin and Rocephin for this patient with right knee inflammatory arthritis, probably gout, R/O septic arthritis. Arthrocentesis has been done, showing more than 20k WBC's in the synovial fluid. Follow up fluid pathology to look for crystals and cultures. If cultures are negative , will d/c antibiotics.
--- NOTE | 2018-01-04 17:28 | US ---
PROCEDURE: Right lower extremity venous US HISTORY: Leg pain and swelling. Evaluate for DVT. PHYSICIAN(S): Stephan Dempsey M.D. TECHNIQUE: Duplex sonography and color-flow Doppler with graded compression were used to evaluate the deep venous system of the right lower extremity. FINDINGS: The visualized deep venous system of the right lower extremity is sonographically normal and compressible. Normal waveforms and augmentation are seen. There is no sonographic evidence for deep venous thrombosis in the visualized segments of the right lower extremity. IMPRESSION: 1. No sonographic evidence for deep venous thrombosis in the visualized segments of the right lower extremity.
[2018-01-04] MEDS ORDERED: Simethicone 80 mg Chewtab PO ONE (20:31)
[2018-01-04] MEDS: Vancomycin 1gm in NS 250ml 1 GM/250 ML BAG IVPB SCH (22:32)
[2018-01-05] MEDS: Pantoprazole 40 mg EC Tab PO SCH (06:28)
[2018-01-05 06:29] LABS: ALB/GLOB RATIO 1.1 (1.1-1.8); ALBUMIN 3.7 g/dL (3.0-4.8); ALT/SGPT 25 U/L (7-56); AST/SGOT 35 U/L (14-36); BLOOD UREA NITROGEN 27 mg/dL (7-21); CALCIUM 8.8 mg/dL (8.4-10.5); GFR NON-AFRICAN AMERICAN > 60
[2018-01-05] MEDS: Insulin Lispro (humaLOG) LOW Coverage SC SCH ×4 (07:30→22:39)
--- NOTE | 2018-01-05 09:57 | CP.PCM.DIS ---
Provider - Provider Date of Admission: 01/04/18 01:28 Attending physician: Venancio Coleman MD Consults: 01/04/18 06:34 Infectious Disease Consult Routine Comment: Consulting Provider: Gabino Manning Consulting Physician: Gabino Manning Reason for Consult: Possible R knee septic arthritis Hospital Course - Lab Results Lab Results: Micro Results 01/04/18 04:00 Blood Blood Culture - Preliminary NO GROWTH AFTER 24 HOURS 01/04/18 03:40 Blood Blood Culture - Preliminary NO GROWTH AFTER 24 HOURS Most Recent Lab Values WBC 13.9 10^3/uL (4.5-11.0) H 01/04/18 03:40 RBC 4.50 10^6/uL (3.5-6.1) 01/04/18 03:40 Hgb 10.9 g/dL (12.0-16.0) L 01/04/18 03:40 Hct 33.2 % (36.0-48.0) L 01/04/18 03:40 MCV 73.8 fl (80.0-105.0) L 01/04/18 03:40 MCH 24.2 pg (25.0-35.0) L 01/04/18 03:40 MCHC 32.8 g/dl (31.0-37.0) 01/04/18 03:40 RDW 16.1 % (11.5-14.5) H 01/04/18 03:40 Plt Count 340 10^3/uL (120.0-450.0) 01/04/18 03:40 MPV 10.6 fl (7.0-11.0) 01/04/18 03:40 Gran % 72.1 % (50.0-68.0) H 01/04/18 03:40 Lymph % (Auto) 21.9 % (22.0-35.0) L 01/04/18 03:40 [place] % (Auto) 5.3 % (1.0-6.0) 01/04/18 03:40 Eos % (Auto) 0.6 % (1.5-5.0) L 01/04/18 03:40 Baso % (Auto) 0.1 % (0.0-3.0) 01/04/18 03:40 Gran # 10.00 (1.4-6.5) H 01/04/18 03:40 Lymph # (Auto) 3.0 (1.2-3.4) 01/04/18 03:40 [place] # (Auto) 0.7 (0.1-0.6) H 01/04/18 03:40 Eos # (Auto) 0.1 (0.0-0.7) 01/04/18 03:40 Baso # (Auto) 0.02 K/mm3 (0.0-2.0) 01/04/18 03:40 ESR 55 mm/hr (0.0-20.0) H 01/04/18 03:40 Retic Count 0.92 % (0.5-1.5) 01/03/18 23:06 PT 13.0 SECONDS (9.4-12.5) H 01/04/18 03:40 INR 1.14 01/04/18 03:40 APTT 33.8 Seconds (25.1-36.5) 01/04/18 03:40 Sodium 138 mmol/L (132-148) 01/05/18 05:15 Potassium 3.9 mmol/L (3.6-5.0) 01/05/18 05:15 Chloride 106 mmol/L (98-107) 01/05/18 05:15 Carbon Dioxide 22 mmol/L (21-33) 01/05/18 05:15 Anion Gap 14 (10-20) 01/05/18 05:15 BUN 27 mg/dL (7-21) H 01/05/18 05:15 Creatinine 0.9 mg/dl (0.7-1.2) 01/05/18 05:15 Est GFR ( Amer) > 60 01/05/18 05:15 Est GFR (Non-Af Amer) > 60 01/05/18 05:15 POC Glucose (mg/dL) 154 mg/dL (65-110) H 01/05/18 08:04 Random Glucose 148 mg/dL (70-110) H 01/05/18 05:15 Hemoglobin A1c 8.4 % (4.2-6.5) H 01/04/18 03:40 Uric Acid 7.3 mg/dL (2.5-6.2) H 01/03/18 23:06 Calcium 8.8 mg/dL (8.4-10.5) 01/05/18 05:15 Iron 24 ug/dL (45-180) L 01/03/18 23:06 TIBC 355 ug/dL (265-497) 01/03/18 23:06 % Saturation 7 % (20-55) L 01/03/18 23:06 Ferritin 10.8 ng/mL 01/03/18 23:06 Total Bilirubin 0.4 mg/dL (0.2-1.3) 01/05/18 05:15 AST 35 U/L (14-36) 01/05/18 05:15 ALT 25 U/L (7-56) 01/05/18 05:15 Alkaline Phosphatase 101 U/L (38-126) 01/05/18 05:15 Total Creatine Kinase 75 U/L (35-230) 01/03/18 23:06 C-React Prot High Sens > 15.00 mg/L (1.00-3.00) H 01/04/18 03:40 Total Protein 7.1 g/dL (5.8-8.3) 01/05/18 05:15 Albumin 3.7 g/dL (3.0-4.8) 01/05/18 05:15 Globulin 3.4 gm/dL 01/05/18 05:15 Albumin/Globulin Ratio 1.1 (1.1-1.8) 01/05/18 05:15 Vitamin B12 416 pg/mL (239-931) 01/03/18 23:06 Fluid Type Cancelled 01/04/18 00:58 Synovial WBC 26826.0 /uL (0.0-150.0) H 01/04/18 00:58 Synovial RBC 51954.0 /uL (0.0-0.0) H 01/04/18 00:58 Synovial Mononuclear 4.4 % (0-0) H 01/04/18 00:58 Synov Polymorphonuclear 95.6 % (0-0) H 01/04/18 00:58 Synovial Fluid Comment TEST NOT PERFORMED 01/04/18 00:58 Discharge Exam - Head Exam Head Exam: ATRAUMATIC, NORMAL INSPECTION, NORMOCEPHALIC Discharge Plan - Follow Up Plan Condition: STABLE Disposition: HOME/ ROUTINE
[2018-01-05] MEDS: Vancomycin 1gm in NS 250ml 1 GM/250 ML BAG IVPB SCH ×2 (10:22→22:00)
[2018-01-05] MEDS: cefTRIAXone 1 gm 1 GM/100 ML BAG IVPB SCH (10:22)
[2018-01-05 10:33] LABS: BASO # 0.02 K/mm3 (0.0-2.0); BASO % 0.2 % (0.0-3.0); EOS # 0.2 (0.0-0.7); EOS % 1.3 % (1.5-5.0); GRAN # 9.77 (1.4-6.5); GRAN % 80.2 % (50.0-68.0); HEMOGLOBIN 10.5 g/dL (12.0-16.0); LYMPH # 1.8 (1.2-3.4); LYMPH % 14.6 % (22.0-35.0); MEAN CELL VOLUME 72.9 fl (80.0-105.0); MEAN CORPUSCULAR HEMOGLOBIN 23.9 pg (25.0-35.0); MEAN CORPUSCULAR HGB CONC 32.8 g/dl (31.0-37.0); MEAN PLATELET VOLUME 10.8 fl (7.0-11.0); MONO # 0.5 (0.1-0.6); MONO % 3.7 % (1.0-6.0); RBC 4.39 10^6/uL (3.5-6.1); RED CELL DISTRIBUTION WIDTH 16.6 % (11.5-14.5); WHITE BLOOD COUNT 12.2 10^3/uL (4.5-11.0)
--- NOTE | 2018-01-05 10:51 | PN ---
DATE: 01/05/2018 SUBJECTIVE: The patient is seen in room 373, bed 2. The patient is doing well. No fevers. No chills. The leg is improving. PHYSICAL EXAMINATION: VITAL SIGNS: Temperature 98, blood pressure 160/90, respiratory rate 20. HEENT: Examination of HEENT is unremarkable. NECK: Supple. LUNGS: Decreased breath sounds. HEART: Normal S1, S2. ABDOMEN: Soft, nontender. LABORATORY DATA: Laboratory examination reveals a white count of 13,900, hemoglobin of 10. Chemistries reveals a BUN of 27, creatinine of 0.9. Synovial wbc count is 21,780. Microbiology reveals the blood cultures are no growth. Knee culture is pending. Gram stain is pending. The patient is on ceftriaxone and vancomycin. Pathology of joint fluid reveals the patient to have positive for uric acid crystals. ASSESSMENT AND PLAN: This is a 57-year-old female with a history of hypertension, diabetes, who is admitted with right knee pain and septic joint arthritis is being ruled out thus far from the pathology and is consistent with uric acid crystals are positive and consistent more for gouty arthritis in a patient who is admitted with knee pain. No fevers are documented and pulse highest is 90, respiratory rate was 20 and white count on the CBC was 13,100. Probable gouty arthritis, on vanco, ceftriaxone. Awaiting for knee cultures. Would continue with the antibiotics pending knee Gram stain and knee culture. The patient is 57 years old. We will also check on an HIV test because her age. Gabino Manning MD
--- NOTE | 2018-01-05 12:36 | CP.PCM.PN ---
<Salena Beckett L - Last Filed: 01/05/18 16:39> Subjective - Date & Time of Evaluation Date of Evaluation: 01/05/18 Time of Evaluation: 07:00 - Subjective Subjective: Resident Progress Note for Hospitalist Service Patient examined at bedside. No acute events overnight. States she is still having knee pain however it is improved since admission. Offers no other complaints at this time. Denies fevers, chills, chest pain, shortness of breath, abdominal pain, dysuria. Objective - Vital Signs/Intake and Output Vital Signs (last 24 hours): Temp Pulse Resp BP Pulse Ox 98 F 84 18 169/84 H 97 01/05/18 08:40 01/05/18 08:40 01/05/18 08:40 01/05/18 10:22 01/05/18 08:40 - Medications Medications: Current Medications Amlodipine Besylate (Norvasc) 10 mg PO DAILY [facility] Last Admin: 01/05/18 10:21 Dose: 10 mg Ceftriaxone Sodium (Rocephin 1 Gram Ivpb) 1 gm in 100 mls @ 100 mls/hr IVPB DAILY [facility]; Protocol Last Admin: 01/05/18 10:22 Dose: 100 mls/hr Vancomycin HCl (Vancomycin 1gm) 1 gm in 250 mls @ 167 mls/hr IVPB Q12 [facility]; Protocol Last Admin: 01/05/18 10:22 Dose: 167 mls/hr Indomethacin (Indocin) 50 mg PO TID [facility] Last Admin: 01/05/18 10:21 Dose: 50 mg Insulin Human Lispro (Humalog Low) 0 units SC ACHS [facility]; Protocol Last Admin: 01/04/18 22:32 Dose: Not Given Lisinopril (Zestril) 20 mg PO DAILY [facility] Last Admin: 01/05/18 10:22 Dose: 20 mg Ondansetron HCl (Zofran Inj) 4 mg IVP Q6H PRN PRN Reason: Nausea/Vomiting Last Admin: 01/04/18 11:30 Dose: 4 mg Pantoprazole Sodium (Protonix Ec Tab) 40 mg PO 0600 [facility] Last Admin: 01/05/18 06:28 Dose: 40 mg - Labs Labs: 01/05/18 10:00 01/05/18 05:15 PT 13.0 SECONDS (9.4-12.5) H 01/04/18 03:40 INR 1.14 01/04/18 03:40 APTT 33.8 Seconds (25.1-36.5) 01/04/18 03:40 - Additional Findings Additional findings: - Constitutional Appears: Well, Non-toxic, No Acute Distress - Head Exam Head Exam: ATRAUMATIC, NORMOCEPHALIC - Eye Exam Eye Exam: EOMI, Normal appearance - Respiratory Exam Respiratory Exam: Clear to Auscultation Bilateral, NORMAL BREATHING PATTERN. absent: Accessory Muscle Use, Decreased Breath Sounds, Rales, Rhonchi, Wheezes, Respiratory Distress, Stridor - Cardiovascular Exam Cardiovascular Exam: RRR, +S1, +S2. absent: Rubs - GI/Abdominal Exam GI & Abdominal Exam: Normal Bowel Sounds, Soft. absent: Guarding, Tenderness - Extremities Exam Extremities exam: Positive for: joint swelling (R knee), normal capillary refill, pedal pulses present. Negative for: calf tenderness, pedal edema Additional comments: no erythema or temperature abnormalities (-) homans sign - Neurological Exam Neurological exam: Alert, Oriented x3 - Psychiatric Exam Psychiatric exam: Normal Affect, Normal Mood - Skin Skin Exam: Dry, Intact, Normal Color, Warm Assessment and Plan - Assessment and Plan (Free Text) Assessment: Pt is a 57 yo F with pmhx of HTN and NIDDM who presented to the ED for R knee pain x [address] R knee noted moderate effusion, Initial US is negative for DVT. Effusion drained and sent for analysis in ED. Plan: R Knee joint effusion 2/2 Septic arthritis vs inflammatory arthritis - CT R knee showed moderate effusion, effusion drained and sent for analysis in ED - Duplex u/s LE (-) for DVT - ESR 55 (H), CRP >15 (H) - Lab analysis shows synovial WBC: 21,780 and PMN%: 95.6%, RBCs: 64070 - Synovial culture prelim no growth for 24 hrs - Synovial fluid shows elevated WBCs, RBCs, PMNs, uric acid crystals - ID consulted. Recs appreciated. - Vancomycin 1 gm IV Q12H - Rocephin 1 gm IV daily - Indomethacin 50 mg PO TID Microcytic Anemia - Iron 24 (L), ferritin 7 (L), TIBC 355, - Retic count 0.92 Hx of HTN - Cont home norvasc, HCTZ, lisinopril Hx of NIDDM - HbgA1c 8.4 - ISS PPX GI: Protonix 40 DVT: SCDs Case discussed with attending Dr. Jared Beckett PGY-1 <Venancio Coleman - Last Filed: 01/06/18 13:36> Objective - Vital Signs/Intake and Output Vital Signs (last 24 hours): Temp Pulse Resp BP Pulse Ox 97.8 F 72 20 166/94 H 95 01/06/18 08:03 01/06/18 10:14 01/06/18 08:03 01/06/18 10:14 01/06/18 08:03 Intake and Output: 01/06/18 01/06/18 06:59 18:59 Intake Total 1090 Output Total 0 Balance 1090 - Medications Medications: Current Medications Amlodipine Besylate (Norvasc) 10 mg PO DAILY [facility] Last Admin: 01/06/18 10:10 Dose: 10 mg Ceftriaxone Sodium (Rocephin 1 Gram Ivpb) 1 gm in 100 mls @ 100 mls/hr IVPB DAILY [facility]; Protocol Last Admin: 01/06/18 10:11 Dose: 100 mls/hr Vancomycin HCl (Vancomycin 1gm) 1 gm in 250 mls @ 167 mls/hr IVPB Q12 [facility]; Protocol Last Admin: 01/06/18 10:14 Dose: 167 mls/hr Indomethacin (Indocin) 50 mg PO TID [facility] Last Admin: 01/06/18 10:10 Dose: 50 mg Insulin Human Lispro (Humalog Low) 0 units SC ACHS [facility]; Protocol Last Admin: 01/06/18 09:05 Dose: Not Given Lisinopril (Zestril) 30 mg PO DAILY [facility] Ondansetron HCl (Zofran Inj) 4 mg IVP Q6H PRN PRN Reason: Nausea/Vomiting Last Admin: 01/04/18 11:30 Dose: 4 mg Pantoprazole Sodium (Protonix Ec Tab) 40 mg PO 0600 [facility] Last Admin: 01/06/18 06:30 Dose: 40 mg - Labs Labs: 01/06/18 05:30 01/06/18 05:30 PT 13.0 SECONDS (9.4-12.5) H 01/04/18 03:40 INR 1.14 01/04/18 03:40 APTT 33.8 Seconds (25.1-36.5) 01/04/18 03:40 Attending/Attestation - Attestation I have personally seen and examined this patient.: Yes I have fully participated in the care of the patient.: Yes I have reviewed all pertinent clinical information, including history, physical exam and plan: Yes Notes (Text): 01/06/18 13:33 Medical record note made by the resident after discussion with my direction and input after the patient was personally seen and examined by me. I have reviewed the chart and agree that the record accurately reflects by personal performance of the history, physical exam, data review, and medical decision-making, in the course for the patient. I have also personally directed the plan of care. 57 yo F with pmhx of HTN and NIDDM who presented to the ED for R knee pain x [address] R knee noted moderate effusion, Initial US is negative for DVT. Patient is SP thoracentesis, synvial fluid is positive for uric acid crystal. Continie IV antibiotics untill fluid cultures come back negative. Patient is feeling better.Pain has improved. We will ambulate the patient. Management plan was discussed in detail with patient. Education was provided.
[2018-01-06 05:48] LABS: BASO # 0.02 K/mm3 (0.0-2.0); BASO % 0.2 % (0.0-3.0); EOS # 0.2 (0.0-0.7); EOS % 2.5 % (1.5-5.0); GRAN # 6.04 (1.4-6.5); GRAN % 63.2 % (50.0-68.0); HEMOGLOBIN 10.5 g/dL (12.0-16.0); LYMPH # 2.8 (1.2-3.4); LYMPH % 28.8 % (22.0-35.0); MEAN CELL VOLUME 73.5 fl (80.0-105.0); MEAN CORPUSCULAR HEMOGLOBIN 23.4 pg (25.0-35.0); MEAN CORPUSCULAR HGB CONC 31.8 g/dl (31.0-37.0); MONO # 0.5 (0.1-0.6); MONO % 5.3 % (1.0-6.0); RBC 4.49 10^6/uL (3.5-6.1); RED CELL DISTRIBUTION WIDTH 15.8 % (11.5-14.5); WHITE BLOOD COUNT 9.6 10^3/uL (4.5-11.0)
[2018-01-06 06:04] LABS: ALB/GLOB RATIO 1.2 (1.1-1.8); ALBUMIN 3.8 g/dL (3.0-4.8); ALT/SGPT 34 U/L (7-56); AST/SGOT 31 U/L (14-36); BLOOD UREA NITROGEN 16 mg/dL (7-21); CALCIUM 9.1 mg/dL (8.4-10.5); GFR NON-AFRICAN AMERICAN > 60
[2018-01-06] MEDS: Pantoprazole 40 mg EC Tab PO SCH (06:30)
[2018-01-06 08:04] VITALS: BP 166/94; PULSE 72; RESP 20; TEMP 97.8; O2SAT 95
[2018-01-06] MEDS: Insulin Lispro (humaLOG) LOW Coverage SC SCH ×2 (09:05→15:45)
[2018-01-06] MEDS: cefTRIAXone 1 gm 1 GM/100 ML BAG IVPB SCH (10:11)
[2018-01-06] MEDS: Vancomycin 1gm in NS 250ml 1 GM/250 ML BAG IVPB SCH (10:14)
--- NOTE | 2018-01-06 13:40 | CP.PCM.DIS ---
<JyothiMartin - Last Filed: 01/06/18 13:40> Provider - Provider Date of Admission: 01/05/18 12:37 Attending physician: Venancio Coleman MD Primary care physician: Dr. Salazar Consults: 01/04/18 06:34 Infectious Disease Consult Routine Comment: Consulting Provider: Gabino Manning Consulting Physician: Gabino Manning Reason for Consult: Possible R knee septic arthritis Time Spent in preparation of Discharge (in minutes): 40 Hospital Course - Lab Results Lab Results: Micro Results 01/04/18 00:58 Synovial Fluid Body Fluid Culture - Preliminary NO GROWTH AFTER 2 DAYS 01/04/18 04:00 Blood Blood Culture - Preliminary NO GROWTH AFTER 48 HOURS 01/04/18 03:40 Blood Blood Culture - Preliminary NO GROWTH AFTER 48 HOURS Most Recent Lab Values WBC 9.6 10^3/uL (4.5-11.0) D 01/06/18 05:30 RBC 4.49 10^6/uL (3.5-6.1) 01/06/18 05:30 Hgb 10.5 g/dL (12.0-16.0) L 01/06/18 05:30 Hct 33.0 % (36.0-48.0) L 01/06/18 05:30 MCV 73.5 fl (80.0-105.0) L 01/06/18 05:30 MCH 23.4 pg (25.0-35.0) L 01/06/18 05:30 MCHC 31.8 g/dl (31.0-37.0) 01/06/18 05:30 RDW 15.8 % (11.5-14.5) H 01/06/18 05:30 Plt Count 344 10^3/uL (120.0-450.0) 01/06/18 05:30 MPV 10.0 fl (7.0-11.0) 01/06/18 05:30 Gran % 63.2 % (50.0-68.0) 01/06/18 05:30 Lymph % (Auto) 28.8 % (22.0-35.0) 01/06/18 05:30 Bradley % (Auto) 5.3 % (1.0-6.0) 01/06/18 05:30 Eos % (Auto) 2.5 % (1.5-5.0) 01/06/18 05:30 Baso % (Auto) 0.2 % (0.0-3.0) 01/06/18 05:30 Gran # 6.04 (1.4-6.5) 01/06/18 05:30 Lymph # (Auto) 2.8 (1.2-3.4) 01/06/18 05:30 Bradley # (Auto) 0.5 (0.1-0.6) 01/06/18 05:30 Eos # (Auto) 0.2 (0.0-0.7) 01/06/18 05:30 Baso # (Auto) 0.02 K/mm3 (0.0-2.0) 01/06/18 05:30 ESR 55 mm/hr (0.0-20.0) H 01/04/18 03:40 Retic Count 0.92 % (0.5-1.5) 01/03/18 23:06 PT 13.0 SECONDS (9.4-12.5) H 01/04/18 03:40 INR 1.14 01/04/18 03:40 APTT 33.8 Seconds (25.1-36.5) 01/04/18 03:40 Sodium 140 mmol/L (132-148) 01/06/18 05:30 Potassium 3.7 mmol/L (3.6-5.0) 01/06/18 05:30 Chloride 106 mmol/L (98-107) 01/06/18 05:30 Carbon Dioxide 27 mmol/L (21-33) 01/06/18 05:30 Anion Gap 10 (10-20) 01/06/18 05:30 BUN 16 mg/dL (7-21) 01/06/18 05:30 Creatinine 0.8 mg/dl (0.7-1.2) 01/06/18 05:30 Est GFR ( Amer) > 60 01/06/18 05:30 Est GFR (Non-Af Amer) > 60 01/06/18 05:30 POC Glucose (mg/dL) 143 mg/dL (65-110) H 01/06/18 11:44 Random Glucose 108 mg/dL (70-110) 01/06/18 05:30 Hemoglobin A1c 8.4 % (4.2-6.5) H 01/04/18 03:40 Uric Acid 7.3 mg/dL (2.5-6.2) H 01/03/18 23:06 Calcium 9.1 mg/dL (8.4-10.5) 01/06/18 05:30 Iron 24 ug/dL (45-180) L 01/03/18 23:06 TIBC 355 ug/dL (265-497) 01/03/18 23:06 % Saturation 7 % (20-55) L 01/03/18 23:06 Ferritin 10.8 ng/mL 01/03/18 23:06 Total Bilirubin 0.2 mg/dL (0.2-1.3) 01/06/18 05:30 AST 31 U/L (14-36) 01/06/18 05:30 ALT 34 U/L (7-56) 01/06/18 05:30 Alkaline Phosphatase 100 U/L (38-126) 01/06/18 05:30 Total Creatine Kinase 75 U/L (35-230) 01/03/18 23:06 C-React Prot High Sens > 15.00 mg/L (1.00-3.00) H 01/04/18 03:40 Total Protein 7.1 g/dL (5.8-8.3) 01/06/18 05:30 Albumin 3.8 g/dL (3.0-4.8) 01/06/18 05:30 Globulin 3.3 gm/dL 01/06/18 05:30 Albumin/Globulin Ratio 1.2 (1.1-1.8) 01/06/18 05:30 Vitamin B12 416 pg/mL (239-931) 01/03/18 23:06 RBC Folate 778 ng/mL RBC (>280) 01/04/18 03:40 Fluid Type Cancelled 01/04/18 00:58 Synovial WBC 19623.0 /uL (0.0-150.0) H 01/04/18 00:58 Synovial RBC 29088.0 /uL (0.0-0.0) H 01/04/18 00:58 Synovial Mononuclear 4.4 % (0-0) H 01/04/18 00:58 Synov Polymorphonuclear 95.6 % (0-0) H 01/04/18 00:58 Synovial Fluid Comment TEST NOT PERFORMED 01/04/18 00:58 - Hospital Course Hospital Course: Martin Roe, PGY-1 Discharge Summary for Hospitalist Service 57 F with PMHc of HTN and NIDDM who presented with R knee pain, which upon CT scan was found to have moderate effusion. Initial Ulatrasound was negative for DVT. Effusion was drained and sent to lab for analysis. ESR and CRp were elevated. Synovial WBC were 14964, PMN [place] 95.6% [place] [address]. Fluid also showed uric acid crystals. Patient was started on Vanc and Rocephin as well as Indomethacin to cover septic arthritis in the setting of inflammatory arthritis. For hypertension, patient was continued on home Norvasc and Lisinopril. HCTZ was discontinued due to high uric acid levels. Patient was found to have elevated blood pressures, so Lisinopril was increased to 30 mg in addition to Norvasc 10 mg. For DM, patient was covered with an insulin sliding scale. 48 hours after effusion, culture came back negative so antibiotics were discontinued and patient was sent home on Indomethacin, her BP meds, and a script for physical therapy for strengthening. Patient and family member were at bedside at time of discharge when I reviewed medications and need for follow up with PCP. Patient expressed understanding and all questions were answered in detail to patient satisfaction. Patient was hemodynamically stable, and prepared for discharge. Patient was also reminded to keep log of blood pressure daily to show primary doctor. For further detail, please see complete medical record. Patient seen, case reviewed, and plan approved by Dr. Coleman. Discharge Exam - Additional Findings Additional findings: - Constitutional Appears: Well, Non-toxic, No Acute Distress - Head Exam Head Exam: ATRAUMATIC, NORMOCEPHALIC - Eye Exam Eye Exam: EOMI, Normal appearance - Respiratory Exam Respiratory Exam: Clear to Auscultation Bilateral, NORMAL BREATHING PATTERN. absent: Accessory Muscle Use, Decreased Breath Sounds, Rales, Rhonchi, Wheezes, Respiratory Distress, Stridor - Cardiovascular Exam Cardiovascular Exam: RRR, +S1, +S2. absent: Rubs - GI/Abdominal Exam GI & Abdominal Exam: Normal Bowel Sounds, Soft. absent: Guarding, Tenderness - Extremities Exam Extremities exam: Positive for: joint swelling (R knee), normal capillary refill, pedal pulses present. Negative for: calf tenderness, pedal edema Additional comments: no erythema or temperature abnormalities to R knee (-) homans sign - Neurological Exam Neurological exam: Alert, Oriented x3 - Psychiatric Exam Psychiatric exam: Normal Affect, Normal Mood - Skin Skin Exam: Dry, Intact, Normal Color, Warm Discharge Plan - Discharge Medications Prescriptions: RX: amLODIPine [Norvasc] 10 mg PO DAILY #30 tab RX: Indomethacin [Indocin] 50 mg PO TID #90 cap RX: Lisinopril 30 mg PO DAILY #30 tablet - Follow Up Plan Condition: STABLE Disposition: HOME/ ROUTINE Additional Instructions: Please continue with your Lisinopril 30 mg daily and Amlodipine 10 mg as prescribed. Please measure your blood pressure daily and keep a log to show your primary care physician. Please take Indomethacin 50 mg by mouth three times a day. Synovial fluid cultures are negative after 48 hours so no further antibiotics are necessary at this time. Script for Physical therapy was provided to patient for 3 weeks. Patient was provided location option upon family request. You must follow up with your PMD Dr. Salazar within one week for an appointment. Should symptoms worsen or reoccur, please visit nearest emergency department. <Venancio Coleman - Last Filed: 01/06/18 13:51> Provider - Provider Date of Admission: 01/05/18 12:37 Attending physician: Venancio Coleman MD Consults: 01/04/18 06:34 Infectious Disease Consult Routine Comment: Consulting Provider: Gabino Manning Consulting Physician: Gabino Manning Reason for Consult: Possible R knee septic arthritis Hospital Course - Lab Results Lab Results: Micro Results 01/04/18 00:58 Synovial Fluid Body Fluid Culture - Preliminary NO GROWTH AFTER 2 DAYS 01/04/18 04:00 Blood Blood Culture - Preliminary NO GROWTH AFTER 48 HOURS 01/04/18 03:40 Blood Blood Culture - Preliminary NO GROWTH AFTER 48 HOURS Most Recent Lab Values WBC 9.6 10^3/uL (4.5-11.0) D 01/06/18 05:30 RBC 4.49 10^6/uL (3.5-6.1) 01/06/18 05:30 Hgb 10.5 g/dL (12.0-16.0) L 01/06/18 05:30 Hct 33.0 % (36.0-48.0) L 01/06/18 05:30 MCV 73.5 fl (80.0-105.0) L 01/06/18 05:30 MCH 23.4 pg (25.0-35.0) L 01/06/18 05:30 MCHC 31.8 g/dl (31.0-37.0) 01/06/18 05:30 RDW 15.8 % (11.5-14.5) H 01/06/18 05:30 Plt Count 344 10^3/uL (120.0-450.0) 01/06/18 05:30 MPV 10.0 fl (7.0-11.0) 01/06/18 05:30 Gran % 63.2 % (50.0-68.0) 01/06/18 05:30 Lymph % (Auto) 28.8 % (22.0-35.0) 01/06/18 05:30 Bradley % (Auto) 5.3 % (1.0-6.0) 01/06/18 05:30 Eos % (Auto) 2.5 % (1.5-5.0) 01/06/18 05:30 Baso % (Auto) 0.2 % (0.0-3.0) 01/06/18 05:30 Gran # 6.04 (1.4-6.5) 01/06/18 05:30 Lymph # (Auto) 2.8 (1.2-3.4) 01/06/18 05:30 Bradley # (Auto) 0.5 (0.1-0.6) 01/06/18 05:30 Eos # (Auto) 0.2 (0.0-0.7) 01/06/18 05:30 Baso # (Auto) 0.02 K/mm3 (0.0-2.0) 01/06/18 05:30 ESR 55 mm/hr (0.0-20.0) H 01/04/18 03:40 Retic Count 0.92 % (0.5-1.5) 01/03/18 23:06 PT 13.0 SECONDS (9.4-12.5) H 01/04/18 03:40 INR 1.14 01/04/18 03:40 APTT 33.8 Seconds (25.1-36.5) 01/04/18 03:40 Sodium 140 mmol/L (132-148) 01/06/18 05:30 Potassium 3.7 mmol/L (3.6-5.0) 01/06/18 05:30 Chloride 106 mmol/L (98-107) 01/06/18 05:30 Carbon Dioxide 27 mmol/L (21-33) 01/06/18 05:30 Anion Gap 10 (10-20) 01/06/18 05:30 BUN 16 mg/dL (7-21) 01/06/18 05:30 Creatinine 0.8 mg/dl (0.7-1.2) 01/06/18 05:30 Est GFR ( Amer) > 60 01/06/18 05:30 Est GFR (Non-Af Amer) > 60 01/06/18 05:30 POC Glucose (mg/dL) 143 mg/dL (65-110) H 01/06/18 11:44 Random Glucose 108 mg/dL (70-110) 01/06/18 05:30 Hemoglobin A1c 8.4 % (4.2-6.5) H 01/04/18 03:40 Uric Acid 7.3 mg/dL (2.5-6.2) H 01/03/18 23:06 Calcium 9.1 mg/dL (8.4-10.5) 01/06/18 05:30 Iron 24 ug/dL (45-180) L 01/03/18 23:06 TIBC 355 ug/dL (265-497) 01/03/18 23:06 % Saturation 7 % (20-55) L 01/03/18 23:06 Ferritin 10.8 ng/mL 01/03/18 23:06 Total Bilirubin 0.2 mg/dL (0.2-1.3) 01/06/18 05:30 AST 31 U/L (14-36) 01/06/18 05:30 ALT 34 U/L (7-56) 01/06/18 05:30 Alkaline Phosphatase 100 U/L (38-126) 01/06/18 05:30 Total Creatine Kinase 75 U/L (35-230) 01/03/18 23:06 C-React Prot High Sens > 15.00 mg/L (1.00-3.00) H 11/30/18 03:40 Total Protein 7.1 g/dL (5.8-8.3) 01/06/18 05:30 Albumin 3.8 g/dL (3.0-4.8) 01/06/18 05:30 Globulin 3.3 gm/dL 01/06/18 05:30 Albumin/Globulin Ratio 1.2 (1.1-1.8) 01/06/18 05:30 Vitamin B12 416 pg/mL (239-931) 01/03/18 23:06 RBC Folate 778 ng/mL RBC (>280) 01/04/18 03:40 Fluid Type Cancelled 01/04/18 00:58 Synovial WBC 20967.0 /uL (0.0-150.0) H 01/04/18 00:58 Synovial RBC 96706.0 /uL (0.0-0.0) H 01/04/18 00:58 Synovial Mononuclear 4.4 % (0-0) H 01/04/18 00:58 Synov Polymorphonuclear 95.6 % (0-0) H 01/04/18 00:58 Synovial Fluid Comment TEST NOT PERFORMED 01/04/18 00:58 Attending/Attestation - Attestation I have personally seen and examined this patient.: Yes I have fully participated in the care of the patient.: Yes I have reviewed all pertinent clinical information, including history, physical exam and plan: Yes Notes (Text): 01/06/18 13:47 Medical record note made by the resident after discussion with my direction and input after the patient was personally seen and examined by me. I have reviewed the chart and agree that the record accurately reflects by personal performance of the history, physical exam, data review, and medical decision-making, in the course for the patient. I have also personally directed the plan of care. 57 yo F with pmhx of HTN and NIDDM who presented to the ED for R knee pain x [address] R knee noted moderate effusion, Initial US is negative for DVT. Patient underwent thoracentesis, synvial fluid is positive for uric acid crystal. Blood and synovial fluid cultures are negative.Antibiotics has been discontinued after discussion with ID. Patient is feeling better.Pain has improved. Patient is ambulatory. HCTZ is discontinued. Patient will follow up with PCP and Rheumatology as out patient. Management plan was discussed in detail with patient. Education was provided.
--- NOTE | 2018-01-06 21:20 | PN ---
DATE: 01/06/2018 SUBJECTIVE: The patient is in bed in no acute distress, nontoxic. PHYSICAL EXAMINATION: VITAL SIGNS: Temperature is 97, blood pressure is 160/90, respiratory rate of 18. HEENT: Examination of HEENT is unremarkable. NECK: Supple. LUNGS: Decreased breath sounds. HEART: Normal S1, S2. ABDOMEN: Soft, nontender. LABORATORY EXAMINATION: Reveals a white count of 9.6, hemoglobin of 10, platelets of 344. Chemistries reveal a BUN of 16, creatinine of 0.8. Synovial fluid is noted. Microbiology reveals the blood cultures are negative and synovial fluid cultures are no growth at 24 hours and no organism seen on Gram stain, and wbc count in the synovial fluid is only 21,000 and the pathology is consistent with a joint fluid with uric acid crystals. ASSESSMENT/PLAN: A 57-year-old female who was seen earlier this morning in Room 373, bed 2, history of hypertension, diabetes, admitted with right knee pain and found to have gouty arthritis with negative cultures. May discontinue the antibiotics at this point. Case discussed with Dr. Venancio Coleman and, maybe, discharge on no antibiotics. No further antibiotics intravenous in a patient with gouty arthritis. Gabino Manning MD
== END 2018-01-06 16:16 | disposition home or self-care (01) ==
LOC: EDBD → ED 21:40 → ERH 01-04 01:28 → 3RSO 01-04 03:19 → INTOOBSV 01-05 12:37 → OBSVTOIN 01-05 12:37
PROVIDERS: ADMIT Internal Medicine; ATTEND Internal Medicine
DX: M10.061 Idiopathic gout, right knee (principal); M17.11 Unilateral primary osteoarthritis, right knee; M25.461 Effusion, right knee; M22.2X1 Patellofemoral disorders, right knee; D50.9 Iron deficiency anemia, unspecified; E11.9 Type 2 diabetes mellitus without complications; I10 Essential (primary) hypertension; Z79.84 Long term (current) use of oral hypoglycemic drugs
CPT/HCPCS: 20610; 36415; 73700; 80053; 82550; 82607; 82728; 82747; 82948; 83036; 83540; 83550; 84550; 84560; 85025; 85044; 85610; 85651; 85730; 86140; 87040; 87070; 87389; 89051; 89060; 93971; 96374; 97116; 97161; 99285; G0378; G8978; G8979; J0696; J1885; J2405; J2543